=== PATIENT | male | born 1980 | race Caucasian/White ===

== ENCOUNTER 2023-03-29 15:42 | Outpatient (OUT) | payer BC, SELFPAY ==
--- NOTE | 2023-03-29 | US_ITS ---
The [address] [address] Patient Name: CAMRYN GARCIA MRN: [id number] date: 1980 Sex: M Assigned Patient Location: US Current Patient Location: Accession/Order Number: [id number] Exam Date: 03/29/2023 16:06 Report Date: 03/30/2023 01:22 At the request of: ULISES WISE Procedure: US soft tissue head and neck EXAM: US soft tissue head and neck HISTORY: Left side of neck mass R22.1 COMPARISON: None. TECHNIQUE: Percutaneous ultrasound evaluation. FINDINGS: Corresponding to patient's palpable lump is a 4.7 x 2.6 x 2.8 cm heterogeneous hypoechoic thinly encapsulated structure with no appreciable internal blood flow on color Doppler. US/US soft tissue head and neck IMPRESSION: Nonspecific mass (possible lipoma) versus complex fluid collection corresponding to patient's palpable lump. Consider CT neck soft tissues with IV contrast for further evaluation. Electronically authenticated by: JUVE LOCKETT Date: 03/30/2023 01:22
== END 2023-03-29 15:43 | disposition home or self-care (01) ==
LOC: US 15:47
PROVIDERS: PCP Family Medicine; Visit Provider Family Medicine
DX: R22.1 Localized swelling, mass and lump, neck (principal)
CPT/HCPCS: 76536